=== PATIENT | female | born 1950 | race Two or more races ===

== ENCOUNTER 2016-12-18 13:16 | Emergency (ER) | payer MEDICARE, BC ==
[~2016-12-18] VITALS: Ht 167.6 cm; Wt 74.8 kg
== END 2016-12-18 13:50 | disposition home or self-care (01) ==
LOC: ER 13:16
DX: H00.015 Hordeolum externum left lower eyelid (principal); E03.9 Hypothyroidism, unspecified; E78.5 Hyperlipidemia, unspecified
CPT/HCPCS: 99283; A4663

== ENCOUNTER 2017-06-24 08:39 | Emergency (ER) | payer MEDICARE, BC ==
[~2017-06-24] VITALS: Ht 167.6 cm; Wt 74.8 kg
[2017-06-24] MEDS ORDERED: TETRACAINE HCL 0.5% OPHT DROP 2 ML BOTTLE OP ONE (09:15)
[2017-06-24] MEDS ORDERED: FLUORESCEIN SODIUM 1 MG STRIP OP ONE (09:15)
--- NOTE | 2017-06-24 09:22 | NUR ---
PT IN BED. MD ROSE CONDUCTING MEDICAL EVAL.
--- NOTE | 2017-06-24 09:28 | NUR ---
Patient discharged to home in stable conditon. Written and verbal after care instructions given. Patient verbalizes understanding of instructions.
[2017-06-24 09:30] VITALS: BP 115/71
[2017-06-24] MEDS ORDERED: TETRACAINE HCL 0.5% OPHT DROP 2 ML BOTTLE ONE (09:33)
[2017-06-24] MEDS ORDERED: FLUORESCEIN SODIUM 1 MG STRIP ONE (09:34)
[2017-06-30] MEDS ORDERED: ESOM20CA PO (17:04)
[2017-06-30] MEDS ORDERED: NEO/3.5O LEFTEYE (17:04)
[2017-06-30] MEDS ORDERED: DOXY100C2 PO (17:04)
[2017-06-30] MEDS ORDERED: CYCL2DRO5 LEFTEYE (17:04)
[2017-06-30] MEDS ORDERED: ACET325T53 PO (17:04)
[2017-06-30] MEDS ORDERED: IBUP-1957 PO (17:04)
[2017-06-30] MEDS ORDERED: PRED5DRO4 LEFTEYE ×2 (17:04)
== END 2017-06-24 09:28 | disposition home or self-care (01) ==
LOC: ER 08:39
DX: H10.9 Unspecified conjunctivitis (principal); E03.9 Hypothyroidism, unspecified; E78.5 Hyperlipidemia, unspecified
CPT/HCPCS: 99283; A4663

== ENCOUNTER 2017-06-29 10:30 | Inpatient (IN) | payer MEDICARE, BC ==
[~2017-06-29] VITALS: Ht 162.6 cm; Wt 75.3 kg
[2017-06-29] MEDS ORDERED: CIPR2.5D LEFTEYE (10:51)
[2017-06-29 11:36] LABS: BASOPHILS # (AUTO) 0.1 K/uL (0.0-8.0); BASOPHILS % (AUTO) 1.5 % (0.0-2.0); EOSINOPHILS # (AUTO) 0.2 K/uL (0.0-0.7); HEMATOCRIT 37.5 % (31.2-41.9); HEMOGLOBIN 12.6 g/dL (10.9-14.3); LYMPHOCYTES # (AUTO) 1.8 K/uL (20.0-40.0); MEAN CORPUSCULAR HGB CONC 34 g/dL (32.3-35.6); MEAN CORPUSCULAR VOLUME 89.6 fL (75.5-95.3); MONOCYTES # (AUTO) 0.4 K/uL (2.0-10.0); NEUTROPHILS # (AUTO) 1.8 K/uL (1.8-8.9); NEUTROPHILS % (AUTO) 43.5 % (38.5-71.5); PLATELET COUNT (AUTO) 200 K/uL (179-408); RED BLOOD CELL COUNT(AUTO) 4.19 MIL/uL (3.63-4.92); WHITE BLOOD COUNT (AUTO) 4.2 K/uL (3.8-11.8)
[2017-06-29 11:47] LABS: BILIRUBIN,TOTAL 0.3 mg/dL (0.2-1.0); CREATININE 0.8 mg/dL (0.6-1.3); POTASSIUM 3.8 mmol/L (3.5-5.1); TOTAL PROTEIN, SERUM 7.5 g/dL (6.4-8.2)
[2017-06-29] MEDS ORDERED: IOHEXOL 300MG/ML 100 ML INFUS..BTL ONE (12:30)
[2017-06-29] MEDS ORDERED: IV NORMAL SALINE 250 ML IV ONE (12:31)
[2017-06-29] MEDS ORDERED: ACETAMINOPHEN 325 MG TABLET PO ONE (13:15)
[2017-06-29] MEDS ORDERED: ACETAMINOPHEN ES 500 MG TABLET ONE (13:31)
[2017-06-29] MEDS ORDERED: VANCOMYCIN 1G/D5W 200 ML PIGGYBACK IV ONE (13:45)
[2017-06-29] MEDS ORDERED: VANCOMYCIN IV 200 ML ONE (14:04)
--- NOTE | 2017-06-29 14:12 | NUR ---
Patient is resting comfortably on gurney with eyes closed, pending callback from the [facility] hospitalist to accept the patient.
--- NOTE | 2017-06-29 14:43 | NUR ---
1431- Snacks requested from dietary. 1428-Security was called re: patient's car is parked on the main street with handicap parking sign.
--- NOTE | 2017-06-29 14:44 | NUR ---
Still for urine specimen, endorsed to [facility]
--- NOTE | 2017-06-29 14:47 | NUR ---
Patient is now eating snacks with good appetite.
[2017-06-29] MEDS ORDERED: ACETAMINOPHEN 325 MG TABLET PO PRN (15:15)
[2017-06-29] MEDS ORDERED: HYDROCODONE/APAP 5-325MG TABLET PO PRN (15:15)
[2017-06-29] MEDS ORDERED: ZOLPIDEM 5 MG TABLET PO PRN (15:15)
[2017-06-29] MEDS ORDERED: MAGNESIUM HYDROXIDE 30 ML LIQUID UDC PO PRN (15:15)
[2017-06-29] MEDS ORDERED: ONDANSETRON 4 MG/2 ML VIAL IV PRN (15:15)
[2017-06-29 15:50] VITALS: BP 131/61
[2017-06-29] MEDS ORDERED: GUAIFENESIN/DEXTROMETHORPHAN 5 ML UDC PO PRN (16:00)
--- NOTE | 2017-06-29 16:57 | NUR ---
PHARMACY CLINICAL NOTES: (VANCOMYCIN DOSING) S: 67 YO female with DX of : "left sided periorbital/preseptal with soft tissue swelling " S/P out patient abx treatment x 5 days and now on Vanco and Zosyn O: BUN/SCR 17/0.8; WBC 4.2 , TEMP 98 DOSING WT 166 LBS A/P: PT received vancomycin 1gm IVPB in ER @ 1400. will continue with Vancomycin 1 gm q18h second dose tomorrow 0800 AM will ck trough prior to 4th dose (not ordered in [facility])and continue to monitor renal fxn and adjust the dose if necessary.
[2017-06-29] MEDS ORDERED: CIPROFLOXACIN 0.3% OPHT DROP 2.5 ML BOTTLE LEFTEYE SCH (17:00)
[2017-06-29 19:00] VITALS: BP 130/70
--- NOTE | 2017-06-29 20:00 | NUR ---
RECEIVED PATIENT AWAKE IN BED. A/O X4. VERY PLEASANT WHEN APPROACHED. LEFT EYE SWOLLEN AND REDNESS NOTED. VSS. C/O MILD PAIN BUT DENIES ANY NEEDS AT THIS TIME FOR PAIN MEDICATION. NO RESP. DISTRESS NOTED. ON RA. HEPLOCK INTACT AND NOTED TO LEFT AC #20 GAUGE. PATIENT IS WAITING FOR FIELD SERVICE POULTRY TECHNICIAN TO COME AND ASSESS EYE TONIGHT. CALL LIGHT IN REACH. ALL NEEDS ATTENDED. WILL CONTINUE TO MONITOR.
[2017-06-29] MEDS ORDERED: DOCUSATE SODIUM 100 MG CAPSULE PO SCH (21:00)
--- NOTE | 2017-06-29 21:00 | NUR ---
DR. OCHOA, VALVE REPAIRER. AT BEDSIDE TO ASSESS PATIENT.
[2017-06-29] MEDS: PIPERACILLIN/TAZOBACTAM/D5W 3.375 G in PREMIXED 1 EACH IV SCH (21:15)
--- NOTE | 2017-06-29 21:45 | NUR ---
RECEIVED NEW ORDERS FROM MD. NOTED AND CARRIED OUT. ALL NEEDS ATTENDED. WILL CONTINUE TO MONITOR AND ASSESS.
[2017-06-29] MEDS ORDERED: PANTOPRAZOLE SODIUM 40 MG TABLET.DR PO ONE (21:59)
[2017-06-29] MEDS ORDERED: MAG HYDROX/AL HYDROX/SIMETH 30 ML LIQUID UDC PO PRN (22:00)
[2017-06-29] MEDS ORDERED: IBUPROFEN 800 MG TABLET PO PRN (22:00)
[2017-06-29] MEDS ORDERED: IBUPROFEN 800 MG TABLET ONE (22:08)
[2017-06-29] MEDS ORDERED: IBUPROFEN 800 MG TABLET PO SCH (22:15)
--- NOTE | 2017-06-30 01:00 | NUR ---
PATIENT ASLEEP IN BED. NO S/S OF PAIN OR DISCOMFORT. NO RESP. DISTRESS NOTED. CALL LIGHT IN REACH. ALL NEEDS ATTENDED. WILL CONTINUE TO MONITOR AND ASSESS.
--- NOTE | 2017-06-30 02:45 | NUR ---
HAND OFF REPORT RECEIVED FROM SHANKAR CARPIO. RECEIVED PT SLEEPING ON BED. IV INTACT AND PATENT.CALL LIGHT WITHIN REACH. BED POSITION LOW.
[2017-06-30 05:00] VITALS: BP 130/69
[2017-06-30] MEDS: PIPERACILLIN/TAZOBACTAM/D5W 3.375 G in PREMIXED 1 EACH IV SCH ×2 (05:09→14:15)
--- NOTE | 2017-06-30 06:43 | NUR ---
PT SLEPT TROUGHOUT THE SHIFT. Gave cold towel to reduce swelling of the eye. PT SHOWS NO SIGNS OF DISTRESS. SAFETY AND COMFORT PROVIDED.
[2017-06-30] MEDS ORDERED: PANTOPRAZOLE SODIUM 40 MG TABLET.DR PO SCH (07:00)
[2017-06-30 07:13] LABS: BASOPHILS # (AUTO) 0.1 K/uL (0.0-8.0); BASOPHILS % (AUTO) 1.6 % (0.0-2.0); EOSINOPHILS # (AUTO) 0.1 K/uL (0.0-0.7); EOSINOPHILS % (AUTO) 3.6 % (0.0-7.0); HEMATOCRIT 34.5 % (31.2-41.9); HEMOGLOBIN 11.6 g/dL (10.9-14.3); LYMPHOCYTES # (AUTO) 2.1 K/uL (20.0-40.0); LYMPHOCYTES % (AUTO) 52.8 % (20.5-51.5); MEAN CORPUSCULAR HEMOGLOBIN 30.2 uug (24.7-32.8); MEAN CORPUSCULAR HGB CONC 34 g/dL (32.3-35.6); MONOCYTES # (AUTO) 0.4 K/uL (2.0-10.0); MONOCYTES % (AUTO) 11.2 % (0.0-11.0); NEUTROPHILS # (AUTO) 1.2 K/uL (1.8-8.9); NEUTROPHILS % (AUTO) 30.8 % (38.5-71.5); PLATELET COUNT (AUTO) 184 K/uL (179-408); RED BLOOD CELL COUNT(AUTO) 3.84 MIL/uL (3.63-4.92)
[2017-06-30 07:25] LABS: THYROID STIMULATING HORMONE 8.51 mIU/mL (0.358-3.740)
[2017-06-30 07:38] LABS: CREATININE 0.9 mg/dL (0.6-1.3)
[2017-06-30 07:39] LABS: BILIRUBIN,TOTAL 0.2 mg/dL (0.2-1.0); MAGNESIUM 2.1 mg/dL (1.8-2.4); PHOSPHOROUS 4.9 mg/dL (2.5-4.9); TOTAL PROTEIN, SERUM 6.4 g/dL (6.4-8.2)
[2017-06-30] MEDS ORDERED: VANCOMYCIN IV 1 G in PREMIXED 0 EACH IV SCH (08:00)
[2017-06-30] MEDS: prednisoLONE ACET 1% OPHT DROP 5 ML BOTTLE LEFTEYE SCH ×3 (09:39→16:09)
[2017-06-30] MEDS: CYCLOPENTOLATE 1% OPHT DROP 2 ML BOTTLE LEFTEYE SCH ×2 (09:39→17:04)
[2017-06-30 10:10] LABS: *BILIRUBIN,URIN NEGATIVE (NEGATIVE); *BLOOD, URINE 1+ (NEGATIVE); *CLARITY,URINE CLEAR (CLEAR); *COLOR,URINE LIGHT YELLOW (YELLOW); *KETONES,URINE NEGATIVE (NEGATIVE); *PROTEIN,URINE NEGATIVE (NEGATIVE); *UROBILINOGEN,URINE 0.2 E.U./dl (NORMAL); LEUKOCYTE ESTERASE ,URINE NEGATIVE (NEGATIVE); NITRITE, URINE NEGATIVE (NEGATIVE); PH,URINE 5.5 (5.0-8.0); UGLUCOSE NEGATIVE (NEGATIVE)
[2017-06-30 10:23] LABS: BACTERIA,URINE NONE SEEN /HPF (NONE SEEN); SQUAMOUS EPITHELIAL CELL,UR FEW /HPF (NONE SEEN); WBC,URINE 0-3 /HPF (0-3)
--- NOTE | 2017-06-30 10:53 | NUR ---
PHARMACY CLINICAL NOTES: (VANCOMYCIN DOSING) S: 67 YO female with DX of : "left sided periorbital/preseptal with soft tissue swelling " S/P out patient abx treatment x 5 days and now on Vanco and Zosyn O: BUN/SCR 21/0.9; WBC 4.0 , TEMP 98.1 DOSING WT 75 kg A/P: will continue same dose of Vancomycin 1 gm ivpb q18h for today. Second dose was due today at 0800 AM. will check trough prior to 4th dose (not ordered in [facility])and continue to monitor renal fxn and adjust the dose if necessary.
[2017-06-30 11:34] VITALS: BP 122/71
[2017-06-30] MEDS: IBUPROFEN 800 MG TABLET PO SCH ×2 (12:41→17:04)
[2017-06-30 15:30] VITALS: BP 121/75
[2017-06-30] MEDS ORDERED: ESOM20CA PO (17:04)
[2017-06-30] MEDS ORDERED: ACET325T53 PO (17:04)
[2017-06-30] MEDS ORDERED: PRED5DRO4 LEFTEYE ×2 (17:04)
[2017-06-30] MEDS ORDERED: NEO/3.5O LEFTEYE (17:04)
[2017-06-30] MEDS ORDERED: DOXY100C2 PO (17:04)
[2017-06-30] MEDS ORDERED: IBUP-1957 PO (17:04)
[2017-06-30] MEDS ORDERED: CYCL2DRO5 LEFTEYE (17:04)
[2017-06-30] MEDS ORDERED: prednisoLONE ACET 1% OPHT DROP 5 ML BOTTLE LEFTEYE SCH (19:00)
[2017-06-30] MEDS ORDERED: LACTOBACILLUS RHAMNOSUS GG 1 EACH CAPSULE PO SCH (21:00)
[2017-06-30] MEDS ORDERED: NEO/POLYMYX B/DEXAME OPHT OINT 3.5 GM TUBE LEFTEYE SCH (21:00)
== END 2017-06-30 19:10 | disposition home or self-care (01) | DRG 603 ==
LOC: ER 10:31 → MED 14:24
PROVIDERS: ADMIT Internal Medicine; ATTEND Internal Medicine
DX: L03.213 Periorbital cellulitis (principal); B30.9 Viral conjunctivitis, unspecified; H20.9 Unspecified iridocyclitis; E03.9 Hypothyroidism, unspecified; E11.9 Type 2 diabetes mellitus without complications; E66.9 Obesity, unspecified; E78.5 Hyperlipidemia, unspecified; Z68.28 Body mass index [BMI] 28.0-28.9, adult; M19.90 Unspecified osteoarthritis, unspecified site
CPT/HCPCS: 36415; 70450; 83735; 84100; 84443; 85025; 85651; 86140; A4663; J2543; J2650; J3370; J7050; Q9967

== ENCOUNTER 2019-03-10 14:52 | Emergency (ER) | payer MEDICARE, BC ==
[~2019-03-10] VITALS: Ht 162.6 cm; Wt 75.3 kg
[~2019-03-10 14:52] MED LIST: ACET325T53 PO; CYCL2DRO5 LEFTEYE; DOXY100C2 PO; ESOM20CA PO; IBUP-1957 PO; NEO/3.5O LEFTEYE; PRED5DRO4 LEFTEYE
[2019-03-10] MEDS ORDERED: IBUPROFEN 600 MG TABLET ONE (15:11)
[2019-03-10] MEDS ORDERED: ACETAMINOPHEN ES 500 MG TABLET ONE (15:11)
--- NOTE | 2019-03-10 15:12 | NUR ---
PT IS IN ROOM #1B. DR ARAUJO EVALUATED THE PT.
[2019-03-10 15:13] LABS: BASOPHILS # (AUTO) 0.1 K/uL (0.0-8.0); BASOPHILS % (AUTO) 1.4 % (0.0-2.0); EOSINOPHILS # (AUTO) 0.1 K/uL (0.0-0.7); EOSINOPHILS % (AUTO) 1.3 % (0.0-7.0); HEMATOCRIT 37.3 % (31.2-41.9); HEMOGLOBIN 12.3 g/dL (10.9-14.3); LYMPHOCYTES % (AUTO) 29.7 % (20.5-51.5); MEAN CORPUSCULAR HEMOGLOBIN 30.3 uug (24.7-32.8); MEAN CORPUSCULAR HGB CONC 33 g/dL (32.3-35.6); MEAN CORPUSCULAR VOLUME 92.2 fL (75.5-95.3); MONOCYTES # (AUTO) 0.5 K/uL (2.0-10.0); MONOCYTES % (AUTO) 7.3 % (0.0-11.0); NEUTROPHILS # (AUTO) 4.1 K/uL (1.8-8.9); NEUTROPHILS % (AUTO) 60.3 % (38.5-71.5); PLATELET COUNT (AUTO) 210 K/uL (179-408); RED BLOOD CELL COUNT(AUTO) 4.05 MIL/uL (3.63-4.92); WHITE BLOOD COUNT (AUTO) 6.8 K/uL (3.8-11.8)
[2019-03-10] MEDS ORDERED: ACETAMINOPHEN ES 500 MG TABLET PO ONE (15:15)
[2019-03-10] MEDS ORDERED: IBUPROFEN 600 MG TABLET PO ONE (15:15)
[2019-03-10 15:25] LABS: BILIRUBIN,DIRECT 0.1 mg/dL (0.0-0.2); BILIRUBIN,TOTAL 0.3 mg/dL (0.2-1.0); CREATININE 0.9 mg/dL (0.6-1.3); POTASSIUM 4.4 mmol/L (3.5-5.1); TOTAL PROTEIN, SERUM 7.6 g/dL (6.4-8.2)
[2019-03-10] MEDS ORDERED: SIMV40TA5 PO (16:11)
[2019-03-10] MEDS ORDERED: LEVO50TA8 PO (16:11)
--- NOTE | 2019-03-10 16:22 | NUR ---
PT REFUSED TO STAY IN HOSPITAL. PT DECIDED TO LEAVE HOSPITAL AMA. DR ARAUJO EXPLAINED ALL RISKS OF LEAVING HOSPITAL AMA TO THE PT. PT VERBALIZED FULL UNDERSTANDING. PT SIGNED AMA FORM AND LEFT HOSPITAL WITH HER RELATIVES. NO S/S OF DISTREE AT THE THE TIME OF DISCHARGE.
[2019-03-10 16:25] VITALS: BP 133/81
== END 2019-03-10 16:25 | disposition left against medical advice (07) ==
LOC: ER 14:52
DX: R07.89 Other chest pain (principal); E78.5 Hyperlipidemia, unspecified; E03.9 Hypothyroidism, unspecified; Z79.1 Long term (current) use of non-steroidal anti-inflammatories (NSAID); Z79.2 Long term (current) use of antibiotics; Z79.899 Other long term (current) drug therapy
CPT/HCPCS: 36415; 70030-TC; 71045; 85025; 93005; A4663; A9150

== ENCOUNTER 2019-06-04 20:02 | Emergency (ER) | payer MEDICARE, BC ==
[~2019-06-04] VITALS: Ht 162.6 cm; Wt 74.8 kg
[~2019-06-04 20:02] MED LIST changes: +LEVO50TA8 PO; +SIMV-49 PO
[2019-06-04] MEDS ORDERED: [UNRECOGNIZED DRUG - CODE] PO (20:15)
[2019-06-04] MEDS ORDERED: FLUT9.9S NS (20:15)
[2019-06-04] MEDS ORDERED: NAPR-1009 PO (20:15)
[2019-06-04] MEDS ORDERED: AMOX-430 PO (20:15)
--- NOTE | 2019-06-04 20:37 | NUR ---
Dr. Fitch at bedside for MSE.
--- NOTE | 2019-06-04 20:48 | NUR ---
Patient discharged to home in stable conditon. Written and verbal after care instructions given. Patient verbalizes understanding of instructions. Pt ambulated out of ER with steady gait, no acute signs of distress, VSS, all belongings taken.
[2019-06-04 20:49] VITALS: BP 110/75
== END 2019-06-04 20:49 | disposition home or self-care (01) ==
LOC: ER 20:02
DX: H92.01 Otalgia, right ear (principal); E78.5 Hyperlipidemia, unspecified; E03.9 Hypothyroidism, unspecified; Z79.899 Other long term (current) drug therapy; Z79.51 Long term (current) use of inhaled steroids
CPT/HCPCS: A4663

== ENCOUNTER 2022-01-19 15:41 | Emergency (ER) | payer MEDICARE, BC ==
[~2022-01-19] VITALS: Ht 162.6 cm; Wt 74.8 kg
[~2022-01-19 15:41] MED LIST changes: -ACET325T53 PO; +AMOX-430 PO; -CYCL2DRO5 LEFTEYE; -DOXY100C2 PO; -ESOM20CA PO; +FLUT16SP16 NS; -IBUP-1957 PO; +NAPR-1009 PO; -NEO/3.5O LEFTEYE; -PRED5DRO4 LEFTEYE; +[UNRECOGNIZED DRUG - CODE] PO
[2022-01-19] MEDS ORDERED: IBUPROFEN 600 MG TABLET ONE (16:14)
[2022-01-19] MEDS ORDERED: IBUPROFEN 600 MG TABLET PO ONE (16:15)
--- NOTE | 2022-01-19 16:16 | NUR ---
DR ROQUE AT BEDSIDE FOR EVALUATION. MEDICATED FOR PAIN PER MD ORDER.
[2022-01-19] MEDS ORDERED: HYDR-4209 PO (16:56)
--- NOTE | 2022-01-19 17:13 | NUR ---
PT WAS EVALUATED BY DR ROQUE. PT WAS D/C'd TO HOME. D/C INSTRUCTIONS GIVEN THE PT BY DR ROQUE.
[2022-01-19 17:14] VITALS: BP 132/75
== END 2022-01-19 17:16 | disposition home or self-care (01) ==
LOC: ER 15:41
DX: S50.02XA Contusion of left elbow, initial encounter (principal); S63.615A Unspecified sprain of left ring finger, initial encounter; W01.0XXA Fall on same level from slipping, tripping and stumbling without subsequent striking against object, initial encounter; Y92.010 Kitchen of single-family (private) house as the place of occurrence of the external cause; E78.5 Hyperlipidemia, unspecified; E03.9 Hypothyroidism, unspecified; Z79.890 Hormone replacement therapy; Z79.899 Other long term (current) drug therapy
CPT/HCPCS: 73080; 73090; 73130; A4663